=== PATIENT | male | born 1965 | race Caucasian/White ===

== ENCOUNTER 2018-07-24 13:18 | Inpatient (IN) ==
[2018-07-24] MEDS ORDERED: METOCLOPRAMIDE 10 MG/2 ML VIAL IV STA (14:18)
[2018-07-24] MEDS ORDERED: PANTOPRAZOLE 40 MG VIAL IV STA (14:18)
[2018-07-24] MEDS ORDERED: ONDANSETRON 4 MG/2 ML VIAL IV STA (14:18)
[2018-07-24 14:53] LABS: Basophils % 0.5 % (0.0-0.8); Hematocrit 37.8 VOL% (42.0-52.0); Hemoglobin 12.2 GM/DL (14.0-18.0); Immature Granulocytes % 0.3 %; Immature Granulocytes Absolute 0.02 #; Lymphocytes # 0.6 10*3/uL (1.4-4.0); Lymphocytes % 9.3 % (21.2-54.2); Mean Corpuscular HGB Conc 32.3 GM/DL (32-36); Mean Corpuscular Hemoglobin 31 PG (27-34); Mean Corpuscular Volume 96.4 FL (87-102); Mean Platelet Volume 11.1 FL (9.6-12.0); Monocytes # 0.5 10*3/uL (0.11-0.8); Monocytes % 8.8 % (1.7-12.7); Neutrophils % 81.1 % (38.7-73.9); Platelet Count 149 T/CUMM (130-400); Red Blood Count 3.92 MC/CUMM (3.8-5.5); White Blood Count 6.1 T/CUMM (4-12)
[2018-07-24 15:15] LABS: PT Patient Result 54.1 SECS; Partial Thromboplastin Time 43.6 SECS (0-40)
[2018-07-24 15:16] LABS: Alanine Aminotransferase 108 U/L (16-61); Albumin 4.1 G/DL (3.4-5.0); Alkaline Phosphatase 85 U/L (45-117); Amylase 66 U/L (25-115); Aspartate Amino Transferase 148 U/L (0-37); Blood Urea Nitrogen 13 MG/DL (7-18); Glucose 118 MG/DL (74-106); Osmolality,Calculated 283.1 MOS/KG (273-304); Potassium 3.9 MMOL/L (3.5-5.1); Sodium 142 MMOL/L (136-145); Total Protein 7.5 G/DL (6.4-8.3); Troponin I < 0.015 NG/ML (0.00-0.045)
[2018-07-24] MEDS ORDERED: FUROSEMIDE 40 MG/4 ML VIAL IV STA (16:08)
[2018-07-24 16:10] LABS: Apearance,Urine Slightly Hazy (Clear); Bilirubin,Urine Negative (Negative); Blood, Urine Moderate mg/dL (Negative); Glucose,Urine (UA) Negative (Negative); Ketones,Urine 5 mg/dL (Negative); Mucus,Urine Moderate /LPF (Occasional); Nitrite,Urine Negative (Negative); Protein,Urine 100 MG/DL; RBC,Urine 3 /HPF (0-4); Squamous Epithelial Cell,Urine Occasional /HPF (0-10); Urine Color Amber (Yellow); Urine Specific Gravity 1.031 (1.001-1.035); WBC,Urine 3 /HPF (0-6)
[2018-07-24] MEDS ORDERED: ONDANSETRON 4 MG/2 ML VIAL IV PRN (18:40)
[2018-07-24] MEDS ORDERED: ACETAMINOPHEN 325 MG TABLET PO PRN (18:40)
[2018-07-24] MEDS ORDERED: LORazepam 2 MG/1 ML VIAL IV PRN (19:17)
[2018-07-24] MEDS ORDERED: SODIUM CHLORIDE 0.9% 1,000 ML IV SCH (19:30)
[2018-07-24] MEDS: LOSARTAN 25 MG TABLET PO SCH (21:06)
[2018-07-24] MEDS: ASPIRIN EC 81 MG TABLET PO SCH (21:07)
[2018-07-24] MEDS: METOPROLOL TARTRATE 50 MG TABLET PO SCH (21:07)
[2018-07-24 21:52] LABS: Troponin I < 0.015 NG/ML (0.00-0.045)
[2018-07-25 06:24] LABS: Basophils # 0.1 10*3/uL (0.0-0.2); Basophils % 0.9 % (0.0-0.8); Eosinophils # 0.1 10*3/uL (0.0-0.87); Hematocrit 35.8 VOL% (42.0-52.0); Hemoglobin 11.4 GM/DL (14.0-18.0); Immature Granulocytes % 0.3 %; Immature Granulocytes Absolute 0.02 #; Lymphocytes # 0.9 10*3/uL (1.4-4.0); Lymphocytes % 15.5 % (21.2-54.2); Mean Corpuscular HGB Conc 31.8 GM/DL (32-36); Mean Corpuscular Hemoglobin 31 PG (27-34); Mean Corpuscular Volume 97.3 FL (87-102); Mean Platelet Volume 11.8 FL (9.6-12.0); Monocytes # 0.5 10*3/uL (0.11-0.8); Monocytes % 8.7 % (1.7-12.7); Neutrophils # 4.2 10*3/uL (1.4-7.4); Neutrophils % 73.6 % (38.7-73.9); Platelet Count 142 T/CUMM (130-400); Red Blood Count 3.68 MC/CUMM (3.8-5.5); Red Cell Distribution Width 17.2 % (9.3-17.3); White Blood Count 5.8 T/CUMM (4-12)
[2018-07-25 06:37] LABS: INR 3.5; Partial Thromboplastin Time 39.3 SECS (0-40)
[2018-07-25 06:49] LABS: Troponin I < 0.015 NG/ML (0.00-0.045)
[2018-07-25 06:52] LABS: PT Patient Result 37.2 SECS
[2018-07-25 06:56] LABS: Albumin 3.4 G/DL (3.4-5.0); Bilirubin,Total 1.6 MG/DL (0.2-1.0); Calcium 8.1 MG/DL (8.5-10.1); Potassium 3.3 MMOL/L (3.5-5.1); Risk Ratio 2.55; Thyroid Stimulating Hormone 0.987 uIU/ml (0.358-3.74); Total Protein 6.9 G/DL (6.4-8.3)
[2018-07-25 07:36] LABS: Hepatitis A Ab IgM Result Negative (Negative); Hepatitis B Core IgM Quant < 0.05 Index; Hepatitis B Core IgM Result Negative (Negative); Hepatitis B Surface Ag Quant 0.34 Index; Hepatitis B Surface Ag Result Negative (Negative); Hepatitis C Virus Ab Quant 0.02 Index; Hepatitis C Virus Ab Result Negative (Negative)
[2018-07-25] MEDS: MULTIVITAMIN (CENTRUM) TABLET PO SCH (08:12)
[2018-07-25] MEDS: SERTRALINE 50 MG TABLET PO SCH (08:12)
[2018-07-25] MEDS: FOLIC ACID 1 MG TABLET PO SCH (08:13)
[2018-07-25] MEDS: VERAPAMIL 80 MG TABLET PO SCH (08:13)
[2018-07-25] MEDS: PANTOPRAZOLE 40 MG TABLET PO SCH (08:13)
[2018-07-25] MEDS: METOPROLOL TARTRATE 50 MG TABLET PO SCH (08:14)
[2018-07-25] MEDS: THIAMINE 100 MG TABLET PO SCH (08:18)
[2018-07-25] MEDS ORDERED: MAGNESIUM SULF RIDER 2 GM in PREMIX 1 EACH IV ONE (11:49)
[2018-07-25] MEDS: chlordiazePOXIDE 10 MG CAPSULE PO SCH ×2 (14:52→22:08)
[2018-07-25] MEDS ORDERED: chlordiazePOXIDE 10 MG CAPSULE PO SCH (15:00)
[2018-07-25 17:58] LABS: Apearance,Urine Slightly Hazy (Clear); Bilirubin,Urine Negative (Negative); Blood, Urine Moderate mg/dL (Negative); Glucose,Urine (UA) Negative (Negative); Ketones,Urine Negative (Negative); Mucus,Urine Few /LPF (Occasional); Nitrite,Urine Negative (Negative); Protein,Urine 100 MG/DL; RBC,Urine 7 /HPF (0-4); Urine Color Amber (Yellow); Urine Specific Gravity 1.029 (1.001-1.035); WBC,Urine 2 /HPF (0-6)
[2018-07-25] MEDS ORDERED: WARFARIN 2.5 MG TABLET PO SCH (18:00)
[2018-07-25 18:38] LABS: Barbiturates Screen,Urine Negative (Negative); Benzodiazepines Screen,Urine Positive (Negative); Cannabinoid Screen,Urine Negative (Negative); Opiate Screen,Urine Negative (Negative); Phencyclidine Screen,Urine Negative (Negative)
[2018-07-25] MEDS: METOPROLOL TARTRATE 100 MG TABLET PO SCH (22:08)
[2018-07-25] MEDS: ASPIRIN EC 81 MG TABLET PO SCH (22:08)
[2018-07-25] MEDS: LOSARTAN 25 MG TABLET PO SCH (22:08)
[2018-07-25] MEDS ORDERED: chlordiazePOXIDE 25 MG CAPSULE PO PRN (23:58)
[2018-07-26] MEDS ORDERED: DILTIAZEM 25 MG/5 ML VIAL IV ONE ×2 (00:03→00:30)
[2018-07-26] MEDS ORDERED: LORazepam 2 MG/1 ML VIAL IV PRN (00:03)
[2018-07-26] MEDS ORDERED: dilTIAZem Drip 125 MG/125 ML PREMIX IV SCH (00:30)
[2018-07-26] MEDS: THIAMINE IV SCH (01:06)
[2018-07-26] MEDS: MULTIVITAMIN IV SCH (01:06)
[2018-07-26] MEDS: FOLIC ACID IV SCH (01:06)
[2018-07-26] MEDS: [UNRECOGNIZED DRUG - OTHER] IV SCH (01:06)
[2018-07-26 04:56] LABS: Basophils # 0.1 10*3/uL (0.0-0.2); Basophils % 0.7 % (0.0-0.8); Eosinophils % 0.4 % (0.00-10.9); Hematocrit 35.3 VOL% (42.0-52.0); Hemoglobin 11.3 GM/DL (14.0-18.0); Immature Granulocytes % 0.4 %; Immature Granulocytes Absolute 0.03 #; Lymphocytes # 0.6 10*3/uL (1.4-4.0); Lymphocytes % 8.3 % (21.2-54.2); Mean Corpuscular Hemoglobin 31 PG (27-34); Mean Corpuscular Volume 96.7 FL (87-102); Mean Platelet Volume 12.4 FL (9.6-12.0); Monocytes # 0.6 10*3/uL (0.11-0.8); Monocytes % 8.3 % (1.7-12.7); Neutrophils # 6.3 10*3/uL (1.4-7.4); Neutrophils % 81.9 % (38.7-73.9); Platelet Count 141 T/CUMM (130-400); Red Blood Count 3.65 MC/CUMM (3.8-5.5); Red Cell Distribution Width 16.8 % (9.3-17.3); White Blood Count 7.6 T/CUMM (4-12)
[2018-07-26 05:04] LABS: INR 1.7; PT Patient Result 18.2 SECS; Partial Thromboplastin Time 29.4 SECS (0-40)
[2018-07-26 05:28] LABS: Albumin 3.4 G/DL (3.4-5.0); Calcium 7.8 MG/DL (8.5-10.1); Osmolality,Calculated 278.5 MOS/KG (273-304); Potassium 3.3 MMOL/L (3.5-5.1); Total Protein 6.8 G/DL (6.4-8.3)
[2018-07-26] MEDS: POTASSIUM CHLORIDE 20 MEQ TABLET PO PRN ×4 (06:36→18:20)
[2018-07-26] MEDS: chlordiazePOXIDE 25 MG CAPSULE PO SCH ×3 (06:36→18:19)
[2018-07-26] MEDS ORDERED: BENZOCAINE 20% TOP PRN (09:37)
[2018-07-26] MEDS: METOPROLOL TARTRATE 100 MG TABLET PO SCH ×2 (10:00→20:58)
[2018-07-26] MEDS: FUROSEMIDE 40 MG TABLET PO SCH (10:00)
[2018-07-26] MEDS: PANTOPRAZOLE 40 MG TABLET PO SCH (10:00)
[2018-07-26] MEDS: VERAPAMIL 80 MG TABLET PO SCH (10:00)
[2018-07-26] MEDS: THIAMINE 100 MG TABLET PO SCH (10:00)
[2018-07-26] MEDS: FOLIC ACID 1 MG TABLET PO SCH (10:00)
[2018-07-26] MEDS: SERTRALINE 50 MG TABLET PO SCH (10:00)
[2018-07-26] MEDS: MULTIVITAMIN (CENTRUM) TABLET PO SCH (10:00)
[2018-07-26] MEDS: HEPARIN DRIP 25,000 UNITS/500 ML PREMIX IV SCH (10:49)
[2018-07-26] MEDS: LOSARTAN 25 MG TABLET PO SCH (20:58)
[2018-07-26] MEDS: ASPIRIN EC 81 MG TABLET PO SCH (20:58)
[2018-07-27] MEDS: [UNRECOGNIZED DRUG - OTHER] IV SCH (01:02)
[2018-07-27] MEDS: THIAMINE IV SCH (01:02)
[2018-07-27] MEDS: MULTIVITAMIN IV SCH (01:02)
[2018-07-27] MEDS: FOLIC ACID IV SCH (01:02)
[2018-07-27] MEDS: chlordiazePOXIDE 25 MG CAPSULE PO SCH ×3 (03:34→19:27)
[2018-07-27] MEDS: HEPARIN DRIP 25,000 UNITS/500 ML PREMIX IV SCH ×4 (04:30→21:50)
[2018-07-27 04:51] LABS: Basophils % 0.7 % (0.0-0.8); Eosinophils # 0.2 10*3/uL (0.0-0.87); Eosinophils % 3.2 % (0.00-10.9); Hematocrit 34.7 VOL% (42.0-52.0); Hemoglobin 11.1 GM/DL (14.0-18.0); Immature Granulocytes Absolute 0.06 #; Lymphocytes # 1.3 10*3/uL (1.4-4.0); Lymphocytes % 20.8 % (21.2-54.2); Mean Corpuscular Hemoglobin 31 PG (27-34); Mean Platelet Volume 12.2 FL (9.6-12.0); Monocytes # 0.5 10*3/uL (0.11-0.8); Monocytes % 8.6 % (1.7-12.7); Neutrophils % 65.7 % (38.7-73.9); Platelet Count 138 T/CUMM (130-400); Red Blood Count 3.54 MC/CUMM (3.8-5.5); Red Cell Distribution Width 16.7 % (9.3-17.3)
[2018-07-27 04:58] LABS: INR 1.3; PT Patient Result 13.8 SECS
[2018-07-27 05:15] LABS: Albumin 3.1 G/DL (3.4-5.0); Bilirubin,Total 1.3 MG/DL (0.2-1.0); Calcium 7.8 MG/DL (8.5-10.1); Osmolality,Calculated 281.1 MOS/KG (273-304); Potassium 3.4 MMOL/L (3.5-5.1); Total Protein 6.6 G/DL (6.4-8.3)
[2018-07-27 05:26] LABS: Partial Thromboplastin Time 50.9 SECS (0-40)
[2018-07-27] MEDS: POTASSIUM CHLORIDE 20 MEQ TABLET PO PRN ×3 (06:25→11:11)
[2018-07-27] MEDS ORDERED: MAGNESIUM SULF RIDER 2 GM in PREMIX 1 EACH IV ONE (07:57)
[2018-07-27] MEDS: METOPROLOL TARTRATE 100 MG TABLET PO SCH ×2 (09:03→21:52)
[2018-07-27] MEDS: THIAMINE 100 MG TABLET PO SCH (09:03)
[2018-07-27] MEDS: MULTIVITAMIN (CENTRUM) TABLET PO SCH (09:03)
[2018-07-27] MEDS: FUROSEMIDE 40 MG TABLET PO SCH (09:03)
[2018-07-27] MEDS: FOLIC ACID 1 MG TABLET PO SCH (09:03)
[2018-07-27] MEDS: SERTRALINE 50 MG TABLET PO SCH (09:03)
[2018-07-27] MEDS: VERAPAMIL 80 MG TABLET PO SCH (09:04)
[2018-07-27] MEDS: PANTOPRAZOLE 40 MG TABLET PO SCH (09:04)
[2018-07-27] MEDS ORDERED: MAGNESIUM SULF RIDER 4 GM in PREMIX 1 EACH IV PRN (09:56)
[2018-07-27] MEDS ORDERED: MAGNESIUM SULF RIDER 2 GM in PREMIX 1 EACH IV PRN (09:56)
[2018-07-27] MEDS ORDERED: INFLUENZA VIRUS VACCINE 0.5 ML SYRINGE IM ONE (12:00)
[2018-07-27] MEDS: cloNIDine 0.1 MG TABLET PO SCH ×2 (15:18→21:52)
[2018-07-27] MEDS: ASPIRIN EC 81 MG TABLET PO SCH (21:52)
[2018-07-27] MEDS: LOSARTAN 25 MG TABLET PO SCH (21:52)
[2018-07-28] MEDS: chlordiazePOXIDE 25 MG CAPSULE PO SCH ×3 (03:11→18:17)
[2018-07-28 05:52] LABS: Basophils % 0.6 % (0.0-0.8); Eosinophils # 0.2 10*3/uL (0.0-0.87); Eosinophils % 3.4 % (0.00-10.9); Hematocrit 34.6 VOL% (42.0-52.0); Hemoglobin 11.2 GM/DL (14.0-18.0); Immature Granulocytes % 0.8 %; Immature Granulocytes Absolute 0.04 #; Lymphocytes # 0.9 10*3/uL (1.4-4.0); Lymphocytes % 16.8 % (21.2-54.2); Mean Corpuscular HGB Conc 32.4 GM/DL (32-36); Mean Corpuscular Hemoglobin 32 PG (27-34); Mean Platelet Volume 11.8 FL (9.6-12.0); Monocytes # 0.5 10*3/uL (0.11-0.8); Monocytes % 9.5 % (1.7-12.7); Neutrophils # 3.6 10*3/uL (1.4-7.4); Neutrophils % 68.9 % (38.7-73.9); Platelet Count 135 T/CUMM (130-400); Red Blood Count 3.53 MC/CUMM (3.8-5.5); White Blood Count 5.2 T/CUMM (4-12)
[2018-07-28 06:22] LABS: Calcium 8.4 MG/DL (8.5-10.1); Osmolality,Calculated 282.3 MOS/KG (273-304); Potassium 3.7 MMOL/L (3.5-5.1)
[2018-07-28] MEDS ORDERED: LIDOCAINE 100 MG/5 ML SYRINGE ONE (10:00)
[2018-07-28] MEDS ORDERED: PROPOFOL 200 MG/20 ML VIAL IV ONE (10:00)
[2018-07-28] MEDS: THIAMINE 100 MG TABLET PO SCH (13:14)
[2018-07-28] MEDS: SERTRALINE 50 MG TABLET PO SCH (13:14)
[2018-07-28] MEDS: FOLIC ACID 1 MG TABLET PO SCH (13:14)
[2018-07-28] MEDS: MULTIVITAMIN (CENTRUM) TABLET PO SCH (13:14)
[2018-07-28] MEDS: FUROSEMIDE 40 MG TABLET PO SCH (13:14)
[2018-07-28] MEDS: cloNIDine 0.1 MG TABLET PO SCH ×3 (13:14→21:42)
[2018-07-28] MEDS: METOPROLOL TARTRATE 100 MG TABLET PO SCH ×2 (13:14→21:42)
[2018-07-28] MEDS: PANTOPRAZOLE 40 MG TABLET PO SCH (13:15)
[2018-07-28] MEDS: VERAPAMIL 80 MG TABLET PO SCH (14:55)
[2018-07-28] MEDS: HEPARIN DRIP 25,000 UNITS/500 ML PREMIX IV SCH ×2 (15:00→20:41)
[2018-07-28] MEDS: WARFARIN 5 MG TABLET PO SCH (18:17)
[2018-07-28] MEDS: ASPIRIN EC 81 MG TABLET PO SCH (21:41)
[2018-07-28] MEDS: LOSARTAN 25 MG TABLET PO SCH (21:42)
[2018-07-29 05:41] LABS: Basophils % 0.5 % (0.0-0.8); Eosinophils # 0.2 10*3/uL (0.0-0.87); Eosinophils % 2.9 % (0.00-10.9); Hematocrit 34.9 VOL% (42.0-52.0); Hemoglobin 11.2 GM/DL (14.0-18.0); Immature Granulocytes % 0.5 %; Immature Granulocytes Absolute 0.03 #; Lymphocytes % 17.6 % (21.2-54.2); Mean Corpuscular HGB Conc 32.1 GM/DL (32-36); Mean Corpuscular Hemoglobin 32 PG (27-34); Mean Corpuscular Volume 98.6 FL (87-102); Monocytes # 0.5 10*3/uL (0.11-0.8); Monocytes % 8.8 % (1.7-12.7); Neutrophils # 3.9 10*3/uL (1.4-7.4); Neutrophils % 69.7 % (38.7-73.9); Platelet Count 154 T/CUMM (130-400); Red Blood Count 3.54 MC/CUMM (3.8-5.5); White Blood Count 5.6 T/CUMM (4-12)
[2018-07-29 05:48] LABS: PT Patient Result 10.9 SECS
[2018-07-29 06:17] LABS: Calcium 8.1 MG/DL (8.5-10.1); Osmolality,Calculated 284.1 MOS/KG (273-304); Potassium 3.6 MMOL/L (3.5-5.1)
[2018-07-29] MEDS: MULTIVITAMIN (CENTRUM) TABLET PO SCH (09:29)
[2018-07-29] MEDS: SERTRALINE 50 MG TABLET PO SCH (09:29)
[2018-07-29] MEDS: FUROSEMIDE 40 MG TABLET PO SCH (09:29)
[2018-07-29] MEDS: METOPROLOL TARTRATE 100 MG TABLET PO SCH ×2 (09:30→22:02)
[2018-07-29] MEDS: PANTOPRAZOLE 40 MG TABLET PO SCH (09:30)
[2018-07-29] MEDS: FOLIC ACID 1 MG TABLET PO SCH (09:30)
[2018-07-29] MEDS: VERAPAMIL 80 MG TABLET PO SCH (09:35)
[2018-07-29] MEDS: cloNIDine 0.1 MG TABLET PO SCH ×3 (09:35→22:01)
[2018-07-29] MEDS: THIAMINE 100 MG TABLET PO SCH (09:54)
[2018-07-29 10:01] LABS: Albumin 3.1 G/DL (3.4-5.0); Bilirubin,Direct 0.21 MG/DL (0.0-0.20); Bilirubin,Indirect 0.5 MG/DL (0.0-1.0); Bilirubin,Total 0.7 MG/DL (0.2-1.0); Total Protein 6.6 G/DL (6.4-8.3)
[2018-07-29] MEDS: HEPARIN DRIP 25,000 UNITS/500 ML PREMIX IV SCH (13:27)
[2018-07-29] MEDS ORDERED: WARFARIN 10 MG TABLET PO ONE (18:00)
[2018-07-29] MEDS: WARFARIN 5 MG TABLET PO SCH (18:23)
[2018-07-29] MEDS: ENOXAPARIN 100 MG/ML SYRINGE SUBCUT SCH (22:01)
[2018-07-29] MEDS: ASPIRIN EC 81 MG TABLET PO SCH (22:02)
[2018-07-29] MEDS: LOSARTAN 25 MG TABLET PO SCH (22:02)
[2018-07-30 05:06] LABS: PT Patient Result 10.7 SECS
[2018-07-30 05:09] LABS: Basophils # 0.1 10*3/uL (0.0-0.2); Eosinophils # 0.1 10*3/uL (0.0-0.87); Eosinophils % 2.4 % (0.00-10.9); Hematocrit 36.3 VOL% (42.0-52.0); Hemoglobin 11.7 GM/DL (14.0-18.0); Immature Granulocytes % 0.8 %; Immature Granulocytes Absolute 0.04 #; Lymphocytes # 0.9 10*3/uL (1.4-4.0); Lymphocytes % 18.5 % (21.2-54.2); Mean Corpuscular HGB Conc 32.2 GM/DL (32-36); Mean Corpuscular Hemoglobin 32 PG (27-34); Mean Corpuscular Volume 97.8 FL (87-102); Mean Platelet Volume 11.2 FL (9.6-12.0); Monocytes # 0.5 10*3/uL (0.11-0.8); Monocytes % 10.7 % (1.7-12.7); Neutrophils # 3.3 10*3/uL (1.4-7.4); Neutrophils % 66.6 % (38.7-73.9); Platelet Count 152 T/CUMM (130-400); Red Blood Count 3.71 MC/CUMM (3.8-5.5); Red Cell Distribution Width 16.7 % (9.3-17.3)
[2018-07-30 05:10] LABS: PT Patient Result 10.7 SECS; Partial Thromboplastin Time 31.7 SECS (0-40)
[2018-07-30 05:28] LABS: Calcium 8.2 MG/DL (8.5-10.1); Osmolality,Calculated 280.4 MOS/KG (273-304); Potassium 3.6 MMOL/L (3.5-5.1)
[2018-07-30 07:58] VITALS: BP 127/88
[2018-07-30] MEDS: FOLIC ACID 1 MG TABLET PO SCH (08:13)
[2018-07-30] MEDS: THIAMINE 100 MG TABLET PO SCH (08:13)
[2018-07-30] MEDS: SERTRALINE 50 MG TABLET PO SCH (08:13)
[2018-07-30] MEDS: FUROSEMIDE 40 MG TABLET PO SCH (08:13)
[2018-07-30] MEDS: ENOXAPARIN 100 MG/ML SYRINGE SUBCUT SCH (08:13)
[2018-07-30] MEDS: METOPROLOL TARTRATE 100 MG TABLET PO SCH (08:14)
[2018-07-30] MEDS: cloNIDine 0.1 MG TABLET PO SCH (08:14)
[2018-07-30] MEDS: MULTIVITAMIN (CENTRUM) TABLET PO SCH (08:14)
[2018-07-30] MEDS: PANTOPRAZOLE 40 MG TABLET PO SCH (08:14)
[2018-07-30] MEDS: VERAPAMIL 80 MG TABLET PO SCH (08:30)
[2018-07-30] MEDS ORDERED: WARFARIN 2.5 MG TABLET PO SCH (18:00)
== END 2018-07-30 12:14 | disposition home health service (06) | DRG 391 ==
LOC: N.ED 13:18 → SUATTDRO 18:38 → N.EDINP 18:38 → N.TELEN 19:45 → N.ICU 07-26 00:03 → N.TELEN 07-27 17:47
PROVIDERS: ADMIT Internal Medicine; ATTEND Internal Medicine

== ENCOUNTER 2018-12-23 09:03 | Observation (INO) ==
[2018-12-23] MEDS ORDERED: DILTIAZEM 50 MG/10 ML VIAL IV STA (09:57)
[2018-12-23] MEDS ORDERED: DILTIAZEM 25 MG/5 ML VIAL IV ONE (10:01)
[2018-12-23 10:06] LABS: Basophils % 0.5 % (0.0-0.8); Hematocrit 35.6 VOL% (42.0-52.0); Immature Granulocytes % 0.3 %; Immature Granulocytes Absolute 0.02 #; Lymphocytes # 0.4 10*3/uL (1.4-4.0); Lymphocytes % 5.5 % (21.2-54.2); Mean Corpuscular HGB Conc 30.9 GM/DL (32-36); Mean Corpuscular Volume 90.6 FL (87-102); Mean Platelet Volume 10.6 FL (9.6-12.0); Monocytes % 3.5 % (1.7-12.7); Neutrophils % 90.2 % (38.7-73.9); Platelet Count 189 T/CUMM (130-400); Red Blood Count 3.93 MC/CUMM (3.8-5.5); Red Cell Distribution Width 20.5 % (9.3-17.3); White Blood Count 6.4 T/CUMM (4-12)
[2018-12-23 10:15] LABS: Partial Thromboplastin Time 32.4 SECS (0-40)
[2018-12-23 10:19] LABS: Troponin I < 0.015 NG/ML (0.00-0.045)
[2018-12-23 10:20] LABS: INR 2.1
[2018-12-23 10:21] LABS: PT Patient Result 22.2 SECS
[2018-12-23 11:15] LABS: Albumin 4.1 G/DL (3.4-5.0); Bilirubin,Total 1.8 MG/DL (0.2-1.0); Calcium 8.8 MG/DL (8.5-10.1); Osmolality,Calculated 284.3 MOS/KG (273-304); Total Protein 6.8 G/DL (6.4-8.3)
[2018-12-23] MEDS ORDERED: MAGNESIUM SULF RIDER 4 GM in PREMIX 1 EACH IV PRN ×2 (12:35→13:56)
[2018-12-23] MEDS ORDERED: BISACODYL 5 MG TABLET PO PRN (12:35)
[2018-12-23] MEDS ORDERED: ACETAMINOPHEN 325 MG TABLET PO PRN (12:35)
[2018-12-23] MEDS ORDERED: MAGNESIUM SULF RIDER 2 GM in PREMIX 1 EACH IV PRN ×2 (12:35→13:56)
[2018-12-23] MEDS ORDERED: POTASSIUM CHLORIDE 20 MEQ TABLET PO PRN (12:35)
[2018-12-23] MEDS ORDERED: MORPHINE 4 MG/1 ML VIAL IV PRN (12:35)
[2018-12-23] MEDS ORDERED: diphenhydrAMINE CAP 25 MG CAPSULE PO PRN (12:35)
[2018-12-23] MEDS ORDERED: guaiFENesin/DM ER 600-30 MG TABLET PO PRN (12:35)
[2018-12-23] MEDS ORDERED: ZALEPLON 5 MG CAPSULE PO PRN (12:35)
[2018-12-23] MEDS ORDERED: ONDANSETRON 4 MG/2 ML VIAL IV PRN (12:35)
[2018-12-23] MEDS ORDERED: DOCUSATE SODIUM 100 MG CAPSULE PO PRN (12:35)
[2018-12-23] MEDS ORDERED: LORazepam 0.5 MG TABLET PO PRN (12:41)
[2018-12-23] MEDS ORDERED: FUROSEMIDE 40 MG/4 ML VIAL IV SCH (13:44)
[2018-12-23 14:45] LABS: Troponin I < 0.015 NG/ML (0.00-0.045)
[2018-12-23] MEDS: THIAMINE 100 MG TABLET PO SCH ×2 (16:17→22:13)
[2018-12-23] MEDS: MULTIVITAMIN (CENTRUM) TABLET PO SCH (16:17)
[2018-12-23 16:50] LABS: Troponin I < 0.015 NG/ML (0.00-0.045)
[2018-12-23] MEDS ORDERED: ASPIRIN EC 81 MG TABLET PO SCH (18:00)
[2018-12-23] MEDS ORDERED: WARFARIN 10 MG TABLET PO SCH (18:00)
[2018-12-23 19:24] LABS: Troponin I < 0.015 NG/ML (0.00-0.045)
[2018-12-23] MEDS ORDERED: LOSARTAN 25 MG TABLET PO SCH (21:00)
[2018-12-23] MEDS: METOPROLOL TARTRATE 100 MG TABLET PO SCH (22:13)
[2018-12-24 02:08] LABS: Barbiturates Screen,Urine Negative (Negative); Benzodiazepines Screen,Urine Negative (Negative); Cannabinoid Screen,Urine Negative (Negative); Opiate Screen,Urine Negative (Negative); Phencyclidine Screen,Urine Negative (Negative)
[2018-12-24 02:42] LABS: Basophils % 0.5 % (0.0-0.8); Eosinophils % 0.5 % (0.00-10.9); Hematocrit 35.9 VOL% (42.0-52.0); Hemoglobin 11.1 GM/DL (14.0-18.0); Immature Granulocytes % 0.7 %; Immature Granulocytes Absolute 0.05 #; Lymphocytes # 0.8 10*3/uL (1.4-4.0); Lymphocytes % 10.5 % (21.2-54.2); Mean Corpuscular HGB Conc 30.9 GM/DL (32-36); Mean Corpuscular Volume 90.2 FL (87-102); Mean Platelet Volume 10.4 FL (9.6-12.0); Monocytes % 5.3 % (1.7-12.7); Neutrophils % 82.5 % (38.7-73.9); Platelet Count 184 T/CUMM (130-400); Red Blood Count 3.98 MC/CUMM (3.8-5.5); Red Cell Distribution Width 20.2 % (9.3-17.3); White Blood Count 7.5 T/CUMM (4-12)
[2018-12-24 02:48] LABS: INR 1.5; PT Patient Result 15.7 SECS
[2018-12-24 03:05] LABS: Calcium 8.3 MG/DL (8.5-10.1); Osmolality,Calculated 273.8 MOS/KG (273-304)
[2018-12-24] MEDS ORDERED: VERAPAMIL SR 180 MG TABLET PO SCH (06:00)
[2018-12-24 08:23] VITALS: BP 126/69
[2018-12-24] MEDS: THIAMINE 100 MG TABLET PO SCH (08:58)
[2018-12-24] MEDS: MULTIVITAMIN (CENTRUM) TABLET PO SCH (08:59)
[2018-12-24] MEDS ORDERED: PANTOPRAZOLE 40 MG TABLET PO SCH (09:00)
[2018-12-24] MEDS ORDERED: POTASSIUM CHLORIDE 10 MEQ TABLET PO SCH (09:00)
[2018-12-24] MEDS ORDERED: SERTRALINE 50 MG TABLET PO SCH (09:00)
[2018-12-24] MEDS ORDERED: metOLazone 5 MG TABLET PO SCH (09:00)
[2018-12-24] MEDS: METOPROLOL TARTRATE 100 MG TABLET PO SCH (09:00)
[2018-12-24] MEDS ORDERED: FUROSEMIDE 40 MG TABLET PO SCH (09:00)
[2018-12-24] MEDS ORDERED: POTASSIUM CHLORIDE 20 MEQ TABLET PO SCH (09:30)
[2018-12-24] MEDS ORDERED: WARFARIN 7.5 MG TABLET PO SCH (18:00)
== END 2018-12-24 11:55 | disposition home or self-care (01) ==
LOC: N.ED 09:03 → N.EDINP 09:03 → N.TELEN 13:25
PROVIDERS: ADMIT Internal Medicine Cardiovascular Disease; ATTEND Internal Medicine Cardiovascular Disease